=== PATIENT | male | born 1950 | race Caucasian/White ===

== ENCOUNTER 2020-01-06 11:14 | Inpatient (IN) | payer MEDICARE, OTHER ==
[~2020-01-06] VITALS: Ht 182.9 cm; Wt 115.7 kg
[2020-01-06] VITALS (22 sets, daily range): BP systolic 96–147; BP diastolic 53–98
--- NOTE | ~2020-01-06 | EMS ---
[facility] [id number] EMS Patient Care Report Name: YANETH DOAN Room: [address] IN .R.#: [id number] Admission: 01/06/20 Attend Phys: Adal Ayon MD Discharge: Date of : 54 Report #: [id number] THIS REPORT FOR: //name// Report Transmitted: 01/06/2020 12:54 EMS Care Summary [facility] Incident [id number] @ 01/06/2020 10:53 Incident Location [address] [place] [address] Patient YANETH DOAN Male, 69 Years 1950 Patient Address [address] [place] [address] Patient History Cardiac Arrythmia,Hypertension (HTN),Atrial Fibrillation, Patient Allergies No known allergies, Patient Medications Metoprolol, Lisinopril, Chief Complaint Chest pain Disposition Transported Lights/Trosper Dispatch Reason Chest Pain (Non-Traumatic) Transported To [facility] Narrative Dispatched: A woman came to the HEMS Station front door and stated "My is in the car. I think he's having a heart attack." Patient, a 69 year old male, got out of the vehicle and walked to the ambulance bay and climbed into the ambulance. [place] [address] EMS Patient Care Report Name: YANETH DOAN Room: [address] IN [facility]#: [id number] Admission: 01/06/20 Attend Phys: Adal Ayon MD Discharge: Date of : 54 Report #: [id number] Chief Complaint: Once in the ambulance, patient stated that he began experiencing chest pain as he was eating breakfast this morning. History of Present Illness: Patient stated that he began experiencing the pain in the center of his chest, 15 minutes prior to arriving at the station. He described the pain as feeling like pressure. Patient stated that the pain was radiating to his teeth and shoulders. Patient stated that he has a history of A-Fib and hypertension. He stated that he took his prescribed medications right after the chest pain started. Primary Assessment: Airway is patent. Patient was breathing fast and shallow and had to be coached to slow it down. Irregular pulse, Atrial Fibrillation. Skin was warm and dry, no diaphoresis. Patient was alert and oriented but in severe pain and appeared very anxious. Secondary Assessment: Pupils equal and reactive. No JVD noted. Equal chest rise and fall with clear lung sounds. EKG was A-Fib with RVR. Also showing depression in leads V4. V5, and V6. Patient stated that he was starting to feel short of breath but he had an oxygen saturation of 100% on room air. A nasal cannula was placed on him anyway. Patient had to be coached to slow his breathing numerous times. Abdomen was soft and non-tender. While en route patient began complaining of nausea. Back was unremarkable. All extremities had purposeful movement. Patient's right arm was in a sling initially but half way through the transport, he took it off. He stated that the sling was choking him. Skin was warm and dry. Transport: Patient required treatment and transport to the closest facility with a bleach boiler puller. Treatment: Assessment provided. Vitals and 12-lead obtained. Aspirin administered. Nasal cannula placed, at 3 liters. IV was established en route and lactated ringers were administered. Patient was continuously monitored en route and numerous 12-leads were obtained. Report was called in to [place] via radio and code STEMI was activated. Summary: Patient was transported Emergent to [facility]. Report and paperwork were given to nurse and doctor. Patient was then taken to the bleach boiler puller. Patient transferred from cot to bed with assistance. Care was transferred at that time. Med 1 clear. Initial Vitals @11:23P: 175,R: 20,BP: 110/63,Pain: 8/10,GCS: 15,SpO2: 100,Revised Trauma: 12,IN Suspected: [place] [address] EMS Patient Care Report Name: YANETH DOAN Room: [address] IN .#: [id number] Admission: 01/06/20 Attend Phys: Adal Ayon MD Discharge: Date of : 54 Report #: [id number] @11:20P: 188,R: 20,Pain: 8/10,GCS: 15,SpO2: 100,IN Suspected: true @11:08P: 170,R: 20,BP: 110/60,Pain: 5/10,GCS: 15,SpO2: 100,Revised Trauma: 12,IN Suspected: true @11:13P: 195,R: 20,BP: 75/56,Pain: 5/10,GCS: 15,SpO2: 100,Revised Trauma: 10,IN Suspected: true @10:56P: 211,R: 20,BP: 115/92,Pain: 5/10,GCS: 15,SpO2: 100,Revised Trauma: 12, @11:03P: 201,R: 20,BP: 100/60,Pain: 5/10,GCS: 15,SpO2: 100,Revised Trauma: 12,IN Suspected: true Assessments @10:54MENTAL:Person Oriented,Time Oriented,Event Oriented,Place Oriented,SKIN:HEENT:Eyes: Right Pupil: 5-mm,Eyes: Left Pupil: 5-mm,Head/Face: No Abnormalities,Neck/Airway: No Abnormalities,LUNG SOUNDS:General: Nausea,ABDOMEN:General: Nausea,PELVIS//GI:No Abnormalities,EXTREMITIES:Capillary Refill: Left Upper: 3 Sec,Left Arm: No Abnormalities,Left Leg: No Abnormalities,Right Leg: No Abnormalities,PULSE:Radial: 3+ Bounding,NEURO:No Abnormalities, Impression Chest Pain / Discomfort Procedures @11:0812-Lead ECGResponse: UnchangedSucceeded@11:0212-Lead ECGResponse: UnchangedSucceeded@10:5712-Lead ECGResponse: UnchangedSucceeded@11:2812-Lead ECGResponse: UnchangedSucceeded@11:2012-Lead ECGResponse: UnchangedSucceeded@11:2312-Lead ECGResponse: UnchangedSucceeded@11:1312-Lead ECGResponse: UnchangedSucceeded@10:58Oxygen FlowRate: 3 Device: Nasal Cannula (NC) Response: UnchangedSucceeded@10:56Aspirin - 324 Milligrams (mg) - OralResponse: Unchanged@11:10Lactated Ringers 275cc () Site: Antecubital-LeftResponse: ImprovedSucceeded@11:03Lactated Ringers 275cc (18 ga) Site: Antecubital-LeftResponse: ImprovedSucceeded Timeline 10:53,At Patient 10:53,Call Received 10:53,Dispatched 10:53,En Route 10:53,On Scene 10:56,Aspirin - 324 Milligrams (mg) - Oral,Response: Unchanged 10:56,BP: 115/92 M,PULSE: 211,RR: 20 R,SPO2: 100 Ox,ETCO2: ,BG: ,PAIN: 5,GCS: 15, 10:57,12-Lead ECG,Response: UnchangedSucceeded, 10:58,Oxygen FlowRate: 3 Device: Nasal Cannula (NC) Response: UnchangedSucceeded, 11:00,Depart Scene 11:02,12-Lead ECG,Response: UnchangedSucceeded, [place] [address] EMS Patient Care Report Name: YANETH DOAN Room: [address]#: [id number] Admission: 01/06/20 Attend Phys: Adal Ayon MD Discharge: Date of : 54 Report #: [id number] 11:03,BP: 100/60 M,PULSE: 201,RR: 20 R,SPO2: 100 Ox,ETCO2: ,BG: ,PAIN: 5,GCS: 15, 11:03,Lactated Ringers 275cc 18 ga Site: Antecubital-Left,Response: ImprovedSucceeded, 11:08,12-Lead ECG,Response: UnchangedSucceeded, 11:08,BP: 110/60 M,PULSE: 170,RR: 20 R,SPO2: 100 Ox,ETCO2: ,BG: ,PAIN: 5,GCS: 15, 11:10,Lactated Ringers 275cc Site: Antecubital-Left,Response: ImprovedSucceeded, 11:13,12-Lead ECG,Response: UnchangedSucceeded, 11:13,BP: 75/56 M,PULSE: 195,RR: 20 R,SPO2: 100 Ox,ETCO2: ,BG: ,PAIN: 5,GCS: 15, 11:20,12-Lead ECG,Response: UnchangedSucceeded, 11:20,BP: / M,PULSE: 188,RR: 20 R,SPO2: 100 Ox,ETCO2: ,BG: ,PAIN: 8,GCS: 15, 11:23,12-Lead ECG,Response: UnchangedSucceeded, 11:23,BP: 110/63 M,PULSE: 175,RR: 20 R,SPO2: 100 Ox,ETCO2: ,BG: ,PAIN: 8,GCS: 15, 11:28,At Destination 11:28,12-Lead ECG,Response: UnchangedSucceeded, 12:00,Call Closed Disclaimer v1.1 Copyright 2020 [employer] This EMS Care Summary contains data elements from the applicable legal record (which may be displayed differently). It is designed to provide pertinent information for the following purposes: continuity of care, clinical quality, and state data reporting. The complete legal record is available to ED staff and administrators of the receiving hospital in [employer] Patient Tracker. All data is provided "as is."
[~2020-01-06 11:14] MED LIST: ACETAMINOPHEN650 M5 PO; ADULT LOW DOSE81 MG PO; ARIXTRA; BENADRYL25 MG PO; CENTRUM COMPLE1 EACH PO; CLARITIN10 MG PO; COLACE100 MG PO; FLAGYL500 MG PO; LISINOPRIL20 MG PO; LOPRESSOR100 MG PO; METAMUCIL PAC1 UDPK1 GT; MIRALAX17 GM PO; MOM; NAPROXEN 220 M220 M1 PO; OXYCONTIN10 M1 PO; OXYIR 5 MG CAPSU5 M1 PO; PEPCID40 MG PO; PERCOCET 5-3251 EACH PO; PROTONIX40 M2 PO; TOPROL XL100 MG PO
[2020-01-06 12:03] LABS: ABSOLUTE BASOPHILS 0.1 thou/uL (0.0-0.2); ABSOLUTE EOSINOPHILS 0.2 thou/uL (0.0-0.7); ABSOLUTE LYMPHOCYTES 3.1 thou/uL (0.8-5.3); ABSOLUTE MONOCYTES 0.6 thou/uL (0.0-1.2); ABSOLUTE NEUTROPHILS 3.9 thou/uL (1.6-8.1); BASOPHILS 1.1 %; HEMATOCRIT 39.5 % (42.0-52.0); HEMOGLOBIN 13.9 gm/dL (14.0-18.0); LYMPHOCYTES 39.5 %; MCH 30.6 pg (26.0-34.0); MCHC 35.2 g/dL (28.0-37.0); MCV 87.1 fL (80.0-100.0); MONOCYTES 7.7 %; MPV 8.6 fl. (7.2-11.1); NUCLEATED RBCS 0 /100WBC; PLATELET COUNT* 243 thou/uL (150-400); POLYS 49.7 %; RBC 4.53 mil/uL (4.50-6.00); RDW-CV 13.4 % (10.5-14.5); WBC 7.8 thou/uL (4.0-11.0)
[2020-01-06 12:14] LABS: CALCIUM 7.9 mg/dL (8.5-10.1); CREATININE 1.2 mg/dL (0.6-1.3); INR 1.1; POTASSIUM 3.8 mmol/L (3.5-5.1)
[2020-01-06 12:24] LABS: ALBUMIN 3.6 g/dL (3.4-5.0); MAGNESIUM 1.6 mg/dL (1.8-2.4); TOTAL BILIRUBIN 0.6 mg/dL (<0.1-1.0); TOTAL PROTEIN 6.4 g/dL (6.4-8.2)
[2020-01-06] MEDS ORDERED: TERBINAFINE HC250 MG PO (14:42)
--- NOTE | 2020-01-06 16:14 | EKG ---
[place] [address] ELECTROCARDIOGRAM REPORT Name: YANETH DOAN Room: [address] ADM IN M.R.#: [id number] Admission: 01/06/20 Attend Phys: Adal Ayon, Discharge: Date of : 54 Date of Service: 01/06/20 1133 Report #: [id number] THIS REPORT FOR: //name// [facility] ED Test Date: 2020-01-06 Test Time: 11:33:50 Pat Name: YANETH DOAN Department: Room: [facility] Gender: M [employer] Station Operator: BERNARD : 1950 Requested By: Rodger Sanches Order Number: [id number] MD: Charan Sterling Measurements Intervals [place] Rate: 188 P: 154 NH: 32 QRS: 24 QRSD: 84 T: 219 QT: 253 QTc: 448 Interpretive Statements Atrial fibrillation with a very rapid response Repolarization abnormality, prob rate related Compared to ECG 03/19/2010 15:00:33 Atrial fib is noted diffuse st depression is noted Early repolarization now present Sinus rhythm no longer present Left ventricular hypertrophy no longer present Electronically Signed On 01-06-2020 16:13:29 CDT by Charan Sterling [email or web address] <ELECTRONICALLY SIGNED> By: Charan Sterling MD, [facility] 01/06/20 1613 1133 1133 Charan Sterling MD, [facility] /EPI
--- NOTE | 2020-01-06 17:50 | CARD ---
[address] [address] CARDIAC CATH REPORT Name: YANETH DOAN Room: [address] IN [facility]#: [id number] Admission: 01/06/20 Attend Phys: Adal Ayon MD Discharge: Date of : 54 Report #: [id number] THIS REPORT FOR: //name// cc: Rojelio Shah MD, Jason C. MD ~ APPROVED REPORT Study performed: 01/06/2020 11:23:30 Patient Details Patient Status: ED Room #: The patient is a 69 year-old male Event Personnel Rui Coronado RTR Monitor, Tish Wharton RN RN, Keith Foster Liston, Michael Horticultural Services Supervisor Procedures Performed Left Heart Cath w/or w/o Coronaries [id number] [facility] Cardioversion Hemostasis w/ Mynx Admission/Lab Medications/Medications given during procedure Zofran (Ondansetron) IV 4 mg, Lopressor IV 5 mg, Lidocaine Subcut 20 ml, Fentanyl IV 50 mcg, Midazolam (Versed) IV 2 mg, Fentanyl IV 25 mcg, Midazolam (Versed) IV 1 mg, Amiodarone IV 150 mg per min Procedure Narrative The patient was brought emergently to the Cardiac Catheterization Laboratory and was prepped and draped in a sterile manner. The right femoral was infiltrated with 2% Lidocaine subcutaneous anesthesia. A Cardwell 6 FR sheath was inserted into the right femoral artery. Coronary angiography was performed using coronary diagnostic catheters. The right coronary system was accessed and visualized with a Diagnostic JR4 6Fr catheter. The left coronary system was accessed and visualized with a Diagnostic JL4 6Fr catheter. The left ventricle was accessed and visualized with a Diagnostic Angeled Pigtail 6Fr catheter. Closure device was deployed with a Fr Mynx 6Fr/7Fr. The patient tolerated the procedure well and there were no complications associated with the procedure. There was no hematoma. Intraoperative Conscious Sedation Sedation start time: 1149 Case end Time: 1211 Fentanyl 75 mcg Versed 3 [place] [address] CARDIAC CATH REPORT Name: YANETH DOAN Maris Room: [address]#: [id number] Admission: 01/06/20 Attend Phys: Adal Ayon MD Discharge: Date of : 54 Report #: [id number] Fluoro Time: 1.5 minutes Dose: DAP 46839 cGycm2 540.38 mGy Contrast Type and Amount: Visipaque 80 ml Diagnostic Cath Left Main The left main coronary artery is normal and bifurcates into a left anterior descending and circumflex coronary artery. LAD The left anterior descending coronary artery has minimal less than 10% plaquing noted proximally. The mid and distal vessel are free of significant disease. Diagonal 1 The first diagonal branch is normal. Diagonal 2 The second diagonal branch is normal. Circumflex The circumflex coronary artery has a focal napkin ring type lesion of approximately 50% after the takeoff of a first obtuse marginal branch. The remainder the vessel is normal. OM1 The first obtuse marginal branch is normal. OM2 The second obtuse marginal branch is normal. L PDA A left PDA is normal. L RAJAN Several left posterior lateral branches are normal. Left Ventriculography Left Ventriculography was not performed. Hemodynamics The aortic pressure is 87/49 mmHg with a mean of 62 mmHg. The left ventricular pressure is 91/13 mmHg with a mean of mmHg. The left ventricular end diastolic pressure is 22 mmHg. Conclusion 1. Nonocclusive coronary artery disease as outlined above. 2. No left ventriculogram obtained. 3. Mildly elevated left ventricular end-diastolic pressure consistent with acute on chronic diastolic heart failure. Recommendations 1. Continue medical management and aggressive risk factor modification. <ELECTRONICALLY SIGNED> By: Adal Ayon MD, FACC 01/06/20 1748 1748 1748Micmarlena Ayon MD, FACC /INF
--- NOTE | 2020-01-06 18:47 | NUR ---
PATIENT TELE STATUS, AXOX4, ASSESSMENT CHARTED. CATH DONE BUT NO INTERVENTIONS. DIGOXIN GIVEN BEFORE 1600 TODAY AND PATIENT CONVERTED TO SINUS KATE POST DIGOXIN. STATES RIGHT SHOULDER FEELS BETTER. UPDATED. NO PAIN, NAUSEA OR SHORTNESS OF AIR. RIGHT GROIN SITE CLEAN/DRY/INTACT. AMIODARONE GTT RUNNING. BED IN LOWEST POSITON, CALL LIGHT IN REACH, CARDIAC MONTIOR IN PLACE.
[2020-01-07] VITALS (10 sets, daily range): BP systolic 109–177; BP diastolic 40–88
[2020-01-07 04:17] LABS: CHOLESTEROL 142 mg/dL (<200); HDL CHOLESTEROL 33 mg/dL (>40); LDL CHOLESTEROL 91 mg/dL (<100); TC:HDL 4.3 Ratio (Not establshd); TRIGLYCERIDE 93 mg/dL (<150); VLDL 19 mg/dL (<40)
[2020-01-07 04:18] LABS: SERUM ASSESSMENT CLEAR
--- NOTE | 2020-01-07 06:07 | NUR ---
PT. PROGRSSING WELL TOWARDS GOALS. REMAINED CHEST PAIN FREE THROUGOUT SHIFT, DID COMPLAIN OF PAIN IN RIGHT SHOULDER DUE TO ROTATOR CUFF SURGERY 6 DAYS AGO. TYLENOL GIVEN PER PRN ORDER, ADEQUATE RELIEF OBTAINED. REMAINS BRADYCARDIC WITH PAC'S. RIGHT GROIN SITE REMAINS CLEAN/DRY/INTACT WITH NO HEMATOMA. URINAL TO VOID. PT. TOLERATING LIQUIDS WELL, WILL RELAY TO ONCOMING SHIFT ABOUT DISCONTINUING IV FLUIDS. CALL LIGHT IN REACH, WILL CONTINUE TO MONITOR.
--- NOTE | 2020-01-07 10:45 | NUR ---
pt transferred to room 204 via wheelchair by nursing staff pt belongings sent with pt
--- NOTE | 2020-01-07 11:46 | NUR ---
CALLED PT.IN ROOM. HE HAD JUST TRANSFERRED OUT OF ICU UP TO A TELEMETRY BED. HE WAS ALERT AND ORIENTED. HE LIVES WITH HIS . HE SAID SHE CAN ASSIST HIM IF NEEDED AT HOME. NO USE OF DME OR HX OF HH. 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 HE HAS NO PROBLEMS WITH PAYING FOR HIS MEDS. HIS IS HIS DPOA. HE HOPES TO GO HOME TOMORROW.
--- NOTE | 2020-01-07 12:26 | 2DMMODE ---
[place] [address] 2 D/M-MODE ECHOCARDIOGRAM Name: SONDRAYANETH ZAVALA Maris Room: [address] IN .R.#: [id number] Admission: 01/06/20 Attend Phys: Adal Ayon, Discharge: Date of : 54 Date of Service: 01/07/20 1224 Report #: [id number] THIS REPORT FOR: cc: Rojelio Shah MD, Jason C. MD Holkins,Charan Cha MD [facility] ~ APPROVED REPORT Study performed: 01/07/2020 10:21:54 EXAM: Comprehensive 2D, Doppler, and color-flow Echocardiogram Patient Location: In-Patient Room #: 204 Status: routine BSA: 2.34 HR: 71 bpm BP: 163/73 mmHg Rhythm: NSR Other Information Study Quality: Good Indications Atrial Fibrillation 2D Dimensions IVSd: 15.90 (7-11mm) LVOT Diam: 21.88 (18-24mm) LVDd: 44.02 mm PWd: 11.83 (7-11mm) Ascending Ao: 37.62 (22-36mm) LVDs: 24.36 (25-40mm) Aortic Root: 38.40 mm Volumes Left Atrial Volume (Systole) LA ESV Index: 42.10 mL/m2 Aortic Valve AoV Peak Omar.: 1.38 m/s AO Peak Gr.: 7.56 mmHg LVOT Max P.08 mmHg AO Mean Gr.: 4.20 mmHg LVOT Mean P.80 mmHg LVOT Max V: 1.13 m/s AO V2 VTI: 28.07 cm LVOT Mean V: 0.79 m/s DEVYN (VTI): 3.48 cm2 LVOT V1 VTI: 25.94 [place] [address] 2 D/M-MODE ECHOCARDIOGRAM Name: YANETH DOAN Room: [address] IN ..#: [id number] Admission: 01/06/20 Attend Phys: Adal Ayon, Discharge: Date of : 54 Date of Service: 01/07/20 1224 Report #: [id number] Mitral Valve E/A Ratio: 1.64 MV Decel. Time: 203.05 ms MV E Max Omar.: 0.82 m/s MV PHT: 58.88 ms MVA (PHT): 3.74 cm2 TDI E/Lateral E': 8.20 E/Medial E': 8.20 Medial E' Omar.: 0.10 m/s Lateral E' Omar.: 0.10 m/s Pulmonary Valve PV Peak Omar.: 1.00 m/s PV Peak Gr.: 4.03 mmHg Tricuspid Valve RAP Estimate: 5.00 mmHg TR Peak Gr.: 36.90 mmHg RVSP: 41.00 mmHg PA Pressure: 41.00 mmHg Left Ventricle The left ventricle is normal size. There is normal LV segmental wall motion. Mild concentric left ventricular hypertrophy. Left ventricular systolic function is normal. The left ventricular ejection fraction is within the normal range. LVEF is 60-65%. The left ventricular diastolic function is normal. Right Ventricle The right ventricle is normal size. The right ventricular systolic function is normal. Atria Left atrium is mildly dilated. The right atrium size is normal. Aortic Valve The aortic valve is normal in structure. No aortic regurgitation is present. There is no aortic valvular stenosis. Mitral Valve The mitral valve is normal in structure. Trace mitral regurgitation. No evidence of mitral valve stenosis. Tricuspid Valve The tricuspid valve is normal in structure. Mild tricuspid regurgitation. Moderate [place] [address] 2 D/M-MODE ECHOCARDIOGRAM Name: YANETH DOAN Room: [address] IN [facility]#: [id number] Admission: 01/06/20 Attend Phys: Adal Ayon, Discharge: Date of : 54 Date of Service: 01/07/20 1224 Report #: [id number] Pulmonic Valve The pulmonary valve is normal in structure. Trace pulmonic regurgitation. Great Vessels The aortic root is normal in size. IVC is normal in size and collapses >50% with inspiration. Pericardium There is no pericardial effusion. <Conclusion> The left ventricle is normal size. Mild concentric left ventricular hypertrophy. Left ventricular systolic function is normal. The left ventricular ejection fraction is within the normal range. LVEF is 60-65%. The left ventricular diastolic function is normal. The right ventricle is normal size. Left atrium is mildly dilated. The right atrium size is normal. The aortic valve is normal in structure. The mitral valve is normal in structure. Trace mitral regurgitation. The tricuspid valve is normal in structure. Mild tricuspid regurgitation. Moderate pulmonary hypertension. IVC is normal in size and collapses >50% with inspiration. There is no pericardial effusion. There is normal LV segmental wall motion. <ELECTRONICALLY SIGNED> By: Charan Sterling MD, FACC 01/07/20 1224 1224 1224 Charan Sterling MD, FACC /INF
--- NOTE | 2020-01-07 16:08 | NUR ---
ASSUMED CARE OF PT APPROX 0930. REPORT RECIEVED FROM ICU NURSE. CHARTING REVIEWED FROM ICU. SAFTEY PRECAUTIONS UTILIZED. HOURLY ROUNDING. CALL LIGHT WITHIN REACH. CARE DISCUSSED WITH CARDIOLOGY NURSE. TELE MONITORING.
[2020-01-08 04:18] VITALS: BP 157/75
--- NOTE | 2020-01-08 05:50 | NUR ---
ASSESSMENTS COMPLETED CHARTED, MEDICATIONS ADMINISTERED PER MAR. HOURLY ROUNDING FOR SAFETY. CALL LIGHT WITHIN REACH. CONT PLAN OF CARE.
[2020-01-08] MEDS ORDERED: MELOXICAM15 MG PO (08:14)
[2020-01-08] MEDS ORDERED: PACERONE 200 M200 M1 PO (11:23)
[2020-01-08 11:51] VITALS: BP 167/94
--- NOTE | 2020-01-08 12:36 | NUR ---
ORDER RECEIVED TO DISCHARGE PATIENT HOME TO SELF CARE WITH SPOUSE. HEART RHYTHM IS NSR AT TIME OF DISCHARGE. NEW PRESCRIPTION OF AMIODARONE. VSS. UP AD JELENA IN ROOM. ROOM AIR. MED REC, MEDICATION EDCAUTION, STROKE EDUCATION, AND NEED FOR FOLLOW UP APPOINTMENTS WITH PRIMARY AND CARDIOLOGY. DC TIME OF 13:40.
--- NOTE | 2020-01-10 12:48 | H ---
[place] [address] HISTORY AND PHYSICAL Name: YANETH DOAN Room: [address]#: [id number] Admission: 01/06/20 Attend Phys: Adal Ayon MD Discharge: 01/08/20 Date of : 54 Report #: [id number] THIS REPORT FOR: //name// cc: Rojelio Shah MD, Jason C. MD ~ THIS REPORT FOR: //name// CC: Rojelio Ayon DATE OF SERVICE: 01/06/2020 CARDIOLOGY ADMISSION HISTORY AND PHYSICAL INDICATION: Chest pain, shortness of breath and atrial fibrillation with rapid ventricular response. HISTORY OF PRESENT ILLNESS: The patient is a 69-year-old gentleman with a history of paroxysmal atrial fibrillation with first episode 10 years ago. At that time, his describes failed cardioversion x 2 followed by some intracardiac procedure with restitution of normal sinus rhythm at that time. He has had no recurrence until today. There is no history of coronary artery disease. The patient states this morning, he began to have a headache, chest discomfort and palpitations approximately an hour prior to arrival to the hospital. He sought the assistance of his local EMS providers, who noted him to have rapid heart rate and irregular EKG. He was transferred to the hospital for further treatment. The patient states he has been in his usual state of health until this morning. He went to the [facility] and picked up some supplies. He came home to have breakfast with his , at which time he had the sudden onset of headache, head pressure, chest pain, shortness of breath and palpitations. These symptoms were ongoing at the time of arrival to the Emergency Room. A 12-lead EKG in the field showed atrial fibrillation with rapid ventricular response and diffuse ST segment depression with ST elevation isolated to leads I and V1. The patient was taken urgently to the cardiac catheterization lab. On angiography, he was found to have moderate nonocclusive coronary disease outlined in the cath report. The patient continued to have a rapid ventricular response rate to his atrial fibrillation. Cardioversion was attempted twice. The patient maintained sinus rhythm for approximately 1 minute after the second DC cardioversion attempt. Prior to that, he had received 2 boluses of 150 mg of amiodarone and 2 boluses of 5 mg of IV Lopressor. With these maneuvers, we achieved adequate rate control. The patient's blood pressure was somewhat labile with a rapid ventricular response to his atrial fibrillation and improved at the time of termination of the case. PAST MEDICAL HISTORY: 1. Paroxys[place] [address] HISTORY AND PHYSICAL Name: YANETH DOAN Maris Room: [address] IN M.R.#: [id number] Admission: 01/06/20 Attend Phys: Adal Ayon MD Discharge: 01/08/20 Date of : 54 Report #: [id number] 2. Hypertension. 3. Peptic ulcer disease. 4. History of remote left total knee replacement. 5. Recent right rotator cuff surgery. ALLERGIES: None reported. HOME MEDICATIONS: Metoprolol succinate 100 mg p.o. b.i.d., metronidazole 500 mg q. 8 hours, MiraLax 17 grams b.i.d., lisinopril 20 mg daily, Protonix 40 mg daily as needed, multivitamin 1 tablet daily, aspirin 81 mg daily, oxycodone extended release 10 mg b.i.d., oxycodone immediate release 5 mg 1-2 tablets p.r.n., Tylenol 650 mg p.r.n., Benadryl 25 mg p.o. p.r.n., Colace 100 mg p.o. b.i.d., Pepcid 20 mg daily, milk of magnesia p.r.n., Percocet 5/325 one to two tablets q. 4 hours p.r.n., Metamucil 1 packet daily, Claritin 10 mg p.r.n., Naprosyn 250 mg daily and p.r.n. FAMILY HISTORY: Noncontributory. SOCIAL HISTORY: The patient denies use of tobacco. REVIEW OF SYSTEMS: As per HPI, otherwise unremarkable. PHYSICAL EXAMINATION: VITAL SIGNS: Blood pressure on arrival 90/50, pulse is irregular with heart rates in the 150s-190s. GENERAL: This is a gentleman with mild distress on arrival, somewhat pale appearing. HEENT: Head is normocephalic, atraumatic. Extraocular muscles intact. The patient is wearing glasses. Mucous membranes are moist. NECK: Shows no jugular venous distention. CHEST: Reveals clear lung brown without wheezes or rales. CARDIAC: Reveals a tachycardic rhythm that is irregularly irregular. I do not appreciate gallop or murmur. ABDOMEN: Reveals normal bowel sounds. The abdomen is soft and nontender. EXTREMITIES: Shows no edema. Peripheral pulses 2+ and palpable. SKIN: Warm and dry. LABORATORY DATA: Reviewed. TSH is normal at 1.515. Sodium 137, potassium 3.8, chloride 106, bicarb 17, BUN 26, creatinine 1.2, serum glucose 132. LFTs are within normal limits. NT-proBNP 333. Troponin less than 0.06. Coags are within normal limits. White blood cell count 7.8; hemoglobin 13.9; platelet count 243,000. IMPRESSION AND RECOMMENDATIONS: 1. Chest discomfort. The patient had nonocclusive coronary disease by catheterization. This does not appear to [place] [address] HISTORY AND PHYSICAL Name: YANETH DOAN Maris Room: [address]#: [id number] Admission: 01/06/20 Attend Phys: Adal Ayon MD Discharge: 01/08/20 Date of : 54 Report #: [id number] Symptoms improved with rate control of his atrial fibrillation. We will follow clinically. 2. Coronary artery disease. We will check fasting lipid profile. Continue daily aspirin. Treat for LDL cholesterol 70 or less. 3. History of hypertension. Blood pressure low presently. With adequate rate control, I suspect his blood pressure will improve. We will continue home medications as tolerated. 4. Atrial fibrillation with rapid ventricular response. The patient was given amiodarone boluses in the medical lab specialist with a drip started at that time. We will continue this for now and obtain echocardiogram. We will attempt rate control initially with possible treatment with antiarrhythmics for rhythm control. Consider outpatient EP evaluation. Thyroid function studies appear normal. <ELECTRONICALLY SIGNED> By: Adal Ayon MD, [facility] 01/10/20 1248 [id number] Medicin[facility] Ayon MD, FACC /nt
--- NOTE | 2020-01-10 12:49 | D ---
[facility] [address] [place] [address] DISCHARGE SUMMARY Name: YANETH DOAN Room: [address]#: [id number] Admission: 01/06/20 Attend Phys: Adal Ayon MD Discharge: 01/08/20 Date of : 54 Report #: [id number] THIS REPORT FOR: //name// cc: Rojelio Shah MD, Jason C. MD THIS REPORT FOR: //name// CC: Rojelio Ayon DISCHARGE DIAGNOSES: 1. Atrial fibrillation with rapid ventricular response rate. 2. Coronary artery disease. 3. Hypertension. 4. Mild hyperlipidemia. HOSPITAL COURSE: The patient was admitted to the Emergency Room with chest pain and atrial fibrillation with rapid ventricular response rate. Initial EKG suggested ST elevation isolated to lateral leads. The patient underwent urgent coronary angiography that showed moderate nonocclusive coronary artery disease with a 50% mid circumflex stenosis. The patient tolerated the procedure well without complication. The patient was given amiodarone boluses for rate control. He was cardioverted twice in the catheterization lab, but failed to maintain sinus rhythm. The patient was given an additional bolus of digoxin for rate control and ultimately did convert to sinus rhythm. He is maintaining sinus rhythm on oral amiodarone. Peak troponin was 4.09, felt to be due to rapid ventricular response to his atrial fibrillation with underlying nonocclusive coronary artery disease. The remainder of his hospitalization was unremarkable. An echocardiogram during this hospitalization showed normal LV systolic function with an ejection fraction of 60-65%. He had mild LVH. DISCHARGE MEDICATIONS: Amiodarone in tapering fashion ultimately 200 mg daily. Lamisil 250 mg daily, aspirin 81 mg daily, lisinopril 20 mg daily, Protonix 40 mg at bedtime, MiraLax 17 grams b.i.d., metoprolol succinate 100 mg b.i.d. DISPOSITION: The patient will follow up with Cardiology in 4 weeks. <ELECTRONICALLY SIGNED> By: Adal Ayon MD, FACC 01/10/20 1249 [id number] [id number] Ayon MD, FACC /nt
== END 2020-01-08 12:45 | disposition home or self-care (01) | DRG 286 ==
LOC: M.ERS 11:14 → M.ICU 11:38 → M.TBA-CV 11:38 → M.2W 11:38 → M.ICU 12:35 → M.2W 01-07 10:20
PROVIDERS: Emergency Medicine Emergency Medical Services; ADMIT Internal Medicine Cardiovascular Disease
PROC: B215YZZ Fluoroscopy of Left Heart using Other Contrast (ICD-10-PCS; principal; 2020-01-06)
PROC: 5A2204Z Restoration of Cardiac Rhythm, Single (ICD-10-PCS; principal; 2020-01-06)
PROC: 4A023N7 Measurement of Cardiac Sampling and Pressure, Left Heart, Percutaneous Approach (ICD-10-PCS; principal; 2020-01-06)
DX: I25.10 Atherosclerotic heart disease of native coronary artery without angina pectoris (principal); I50.33 Acute on chronic diastolic (congestive) heart failure; I48.20 Chronic atrial fibrillation, unspecified; I11.0 Hypertensive heart disease with heart failure; E78.5 Hyperlipidemia, unspecified; I48.0 Paroxysmal atrial fibrillation; Z96.652 Presence of left artificial knee joint; Z79.82 Long term (current) use of aspirin; Z79.899 Other long term (current) drug therapy; Z87.11 Personal history of peptic ulcer disease